=== PATIENT | female | born 1985 | race Caucasian/White ===

== ENCOUNTER 2017-10-29 15:24 | Emergency (ER) | payer OTHER ==
[2017-10-29 15:45] VITALS: BP 153/91
[2017-10-29] MEDS ORDERED: CYCLOBENZAPRINE 10 MG TABLET PO STA (15:58)
[2017-10-29] MEDS ORDERED: HYDROcod/ACETAM 5/325 MG TABLET PO STA (15:58)
--- NOTE | 2017-10-29 16:03 | ED Physician Documentation ---
PD HPI BACK INJURY - Stated complaint Stated Complaint: BACK PX - History obtained from History obtained from: Patient - History of Present Illness Location: Lower (She has chronic LBP, for about 2 years. Worse on days where she has to stand a lot. 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 Musculoskeletal: Chronic back pain - Past Surgical History Past Surgical History: Yes General: Appendectomy - Present Medications Home Medications: Ambulatory Orders Medication Instructions Recorded Confirmed Levonorgestrel-Ethin Estradiol 11/08/15 [Altavera-28 Tablet] Cyclobenzaprine [Flexeril] 10 mg PO TID PRN #20 tablet 10/29/17 HYDROcod/ACETAM 5/325 [[place] 5/325] 1 - 2 ea PO Q6H PRN #15 tablet 10/29/17 - Allergies Allergies/Adverse Reactions: Allergies Allergy/AdvReac Type Severity Reaction Status Date / Time nickel AdvReac Rash Verified 10/29/17 15:45 - Social History Does the pt smoke?: No Smoking Status: Never smoker Does the pt drink ETOH?: Yes Does the pt have substance abuse?: No - Immunizations Immunizations are current?: Yes PD ED PE NORMAL - Vitals Vital signs reviewed: Yes - General General: Alert and oriented X 3, No acute distress - Abdomen Abdomen: Normal bowel sounds, Soft, Non tender - Back Back: No CVA TTP, No spinal TTP - Extremities Extremities: Other (The patient has equal and normal Achilles and patellar reflexes bilaterally. Normal sensation in all areas of the legs. Patient denies saddle anesthesia. Normal strength in flexion-extension at the ankles, knees, and flexion of the hips.) - Neuro Neuro: Alert and oriented X 3, Normal speech - Psych Psych: Normal mood, Normal affect Results - Vitals Vitals: Vital Signs - 24 hr 10/29/17 15:41 Temperature 36.8 C Heart Rate 108 H Respiratory 14 Rate Blood Pressure 153/91 H O2 Saturation 99 Oxygen O2 Source Room air Departure - Departure Disposition: 01 Home, Self Care Clinical Impression: Back pain Qualifiers: Back pain location: low back pain Chronicity: chronic Back pain laterality: bilateral Sciatica presence: without sciatica Qualified Code(s): M54.5 - Low back pain; G89.29 - Other chronic pain; G89.29 - Other chronic pain Condition: Good Record reviewed to determine appropriate education?: Yes Instructions: ED Low Back Pain Injury Prescriptions: Cyclobenzaprine [Flexeril] 10 mg PO TID PRN #20 tablet PRN Reason: Pain HYDROcod/ACETAM 5/325 [[place] 5/325] 1 - 2 ea PO Q6H PRN #15 tablet PRN Reason: Pain Comments: Call your doctor to arrange a follow-up appointment, make the next available appointment. In the interim, return anytime if worse or if new symptoms develop. Your blood pressure was elevated today on check into the emergency department. This does not mean that you have hypertension, it is a common phenomenon to come to the emergency department and have elevated blood pressure. I recommend that you see your primary care physician within the week to have it rechecked when you are feeling better. Do not drink or drive while taking narcotic pain medication. Note that many narcotic pain relievers also contain Tylenol/acetaminophen. Please ensure that your total dose of acetaminophen from all sources does not exceed 3 g (3000 mg) per day. You may get constipated while on this medication. Take a stool softener such as Colace twice a day while you are on it. Also add an [id number] laxative such as senna or MiraLAX on any day that you do not have a bowel movement. If you received a narcotic pain medication or sedative while in the emergency department, do not drive for the next 24 hours. Forms: Activity restrictions
== END 2017-10-29 16:24 | disposition home or self-care (01) ==
LOC: ED 15:24
DX: M54.5 Low back pain (principal); G89.29 Other chronic pain; R03.0 Elevated blood-pressure reading, without diagnosis of hypertension
CPT/HCPCS: 99283

== ENCOUNTER 2018-09-27 08:13 | Emergency (ER) | payer OTHER ==
[2018-09-27] MEDS ORDERED: DEXAMETHASONE 10 MG/ML VIAL PO STA (09:42)
[2018-09-27] MEDS ORDERED: CHERRY SYRUP 10 ML UDC PO ONE (09:42)
--- NOTE | 2018-09-27 09:45 | ED Physician Documentation ---
PD HPI BACK PAIN - Stated complaint Stated Complaint: LEFT LEG PX - Chief complaint Chief Complaint: Back Pain - History obtained from History obtained from: Patient, Family - History of Present Illness Timing - onset: How many days ago (5) Timing - duration: Days (5) Timing - details: Gradual onset, Still present Location: Lower, Left Quality: Pain, Spasm, Sharp, Similar to prior episodes Associated symptoms: No: Fever, Weakness, Numbness, Incontinent of urine, Unable to urinate, Hematuria, Incontinent of stool Improves with: Rest, Position, Meds Worsened by: Movement Contributing factors: Other (pain worsens on standing at watch.) Similar symptoms before: Diagnosis (lumbar disc disease) Recently seen: Surgery - Additional information Additional information: 33-year-old female with a history of lumbar disc disease has had a surgery 3 weeks ago to her back and she was able to get off of her pain medications until about 5 days ago when she began to get symptoms again of pain this time only in the left leg and on the left anterior thigh. She has some increased pain in her back if she is standing for a long time it watch. She denies perineal numbness she denies any difficulty with her bowel or bladder. She has been taking some pain medication and muscle relaxant with some improvement but this is not lasting. Review of Systems Constitutional: denies: Fever, Chills Eyes: denies: Decreased vision Ears: denies: Ear pain Nose: denies: Congestion Throat: denies: Sore throat Cardiac: denies: Chest pain / pressure, Palpitations Respiratory: denies: Dyspnea, Cough GI: denies: Abdominal Pain, Nausea, Vomiting : denies: Dysuria, Frequency Skin: denies: Rash Musculoskeletal: reports: Back pain, Extremity pain. 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 Musculoskeletal: Chronic back pain - Past Surgical History Past Surgical History: Yes General: Appendectomy Ortho: Spine surgery - Present Medications Home Medications: Ambulatory Orders Medication Instructions Recorded Confirmed Levonorgestrel-Ethin Estradiol 1 11/08/15 [Altavera-28 Tablet] Cyclobenzaprine [Flexeril] 10 mg PO TID PRN #20 tablet 10/29/17 09/27/18 HYDROcod/ACETAM 5/325 [[place] 5/325] 1 - 2 ea PO Q6H PRN #15 tablet 10/29/17 09/27/18 - Allergies Allergies/Adverse Reactions: Allergies Allergy/AdvReac Type Severity Reaction Status Date / Time nickel AdvReac Rash Verified 09/27/18 08:30 - Social History Does the pt smoke?: No Smoking Status: Never smoker Does the pt drink ETOH?: Yes Does the pt have substance abuse?: No - Immunizations Immunizations are current?: Yes - POLST Patient has POLST: No PD ED PE NORMAL - Vitals Vital signs reviewed: Yes (tachy and hypertensive ) - General General: Alert and oriented X 3, No acute distress, Well developed/nourished - HEENT HEENT: Atraumatic, PERRL, EOMI - Respiratory Respiratory: No respiratory distress - Back Back: No CVA TTP, Other (The surgical incision is without inflamation or drainag e. Well healed. mild tenderness to the paraspinous muscles of the lower back. 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, No motor deficit, No sensory deficit, Normal speech, Other (good dorsiflexion streangth) Eye Opening: Spontaneous Motor: Obeys Commands Verbal: Oriented GCS Score: 15 - Psych Psych: Normal mood, Normal affect Results - Vitals Vitals: Vital Signs - 24 hr 09/27/18 08:22 Temperature 37.1 C Heart Rate 105 H Respiratory 16 Rate Blood Pressure 131/86 H O2 Saturation 100 Oxygen O2 Source Room air PD MEDICAL DECISION MAKING - ED course Complexity details: considered differential, d/w patient, d/w family ED course: 33-year-old female with sciatica after a recent lumbar surgery is afebrile and her incision appears well and she is not having midline back pain. She is having referred pain to the left thigh and she is administered a dose of dexamethasone. She does have pain medication and muscle relaxant at home. Departure - Departure Disposition: 01 Home, Self Care Clinical Impression: Sciatica Qualifiers: Laterality: left Qualified Code(s): M54.32 - Sciatica, left side Condition: Stable Instructions: ED Sciatica Follow-Up: JENISE RODRIGEZ MD [Primary Care Provider] - Forms: Activity restrictions
[2018-09-27 10:12] VITALS: BP 120/81
== END 2018-09-27 10:14 | disposition home or self-care (01) ==
LOC: ED 08:13
DX: M54.32 Sciatica, left side (principal); Z98.890 Other specified postprocedural states; G89.29 Other chronic pain
CPT/HCPCS: 99283; A9270

== ENCOUNTER 2019-11-22 14:28 | Outpatient (CLI) | payer OTHER ==
[2019-11-22] MEDS ORDERED: GADOBUTROL 7.5 MMOL/7.5 ML VIAL ONE (14:46)
--- NOTE | 2019-11-24 13:55 | MRI Report ---
PROCEDURE: Lumbar Spine W/WO INDICATIONS: LOW BACK PAIN CONTRAST: IV CONTRAST: Gadavist ml: 7 TECHNIQUE: Noncontrast sagittal T1 spin echo and T2 fast spin echo, sagittal STIR, axial T1 and T2 fast spin ech o through the lumbar spine. In cases with scoliosis, additional coronal T2 fast spin echo may be per formed. After the administration of contrast, sagittal and axial T1 spin echo with fat saturation th rough the lumbar spine. COMPARISON: None. FINDINGS: Image quality: Excellent. Alignment and curvature: There is trace retrolisthesis of L5 on S1. Marrow: Marrow is of normal overall signal. Mild reactive endplate changes are present at L5-S1. No acute vertebral body compression fractures. No suspicious marrow enhancement. Spinal cord: Conus medullaris terminates at the L1-L2 level. Visualized spinal cord demonstrates no rmal signal, without suspicious enhancement. Paraspinous soft tissues: No paravertebral masses or abnormal enhancement. Discs: Severe desiccation is present at L5-S1. L1-L2: No disc bulge, spinal stenosis or foraminal narrowing. L2-L3: No disc bulge, spinal stenosis or foraminal narrowing. L3-L4: No disc bulge, spinal stenosis or foraminal narrowing. L4-L5: No disc bulge, spinal stenosis or foraminal narrowing. L5-S1: Mild disc bulge with small posterior central protrusion/extrusion. No spinal stenosis. Mild to moderate bilateral foraminal narrowing with facet hypertrophy. IMPRESSION: 1. Mild disc bulge with superimposed posterior central protrusion/extrusion at L5-S1. Reviewed by: Letitia Casey MD on 11/24/2019 1:54 PM PDT Approved by: Letitia Casey MD on 11/24/2019 1:54 PM PDT Station ID: [id number]
== END 2019-11-22 14:29 | disposition home or self-care (01) ==
LOC: DI 14:28
DX: M51.27 Other intervertebral disc displacement, lumbosacral region (principal); M51.37 Other intervertebral disc degeneration, lumbosacral region
CPT/HCPCS: 72158; A9585